=== PATIENT | female | born 1990 | race Caucasian/White ===

== ENCOUNTER 2020-08-14 18:33 | Emergency (ER) | payer BC ==
[2020-08-14 18:51] VITALS: BP 137/102; TEMP 97.7; O2SAT 97
--- NOTE | 2020-08-14 18:59 | ED.PDOC ---
History of Present Illness - General Chief Complaint: Lower Extremity Injury Stated Complaint: right foot pain Time Seen by Provider: 08/14/20 18:40 Source: patient Exam Limitations: no limitations - History of Present Illness Occurred: yesterday Pain - Lower Extremity: moderate: Right Foot - twisted right foot yetserday Method of Injury: twisted Improving Factors: nothing Worsening Factors: nothing Allergies/Adverse Reactions: Allergies NSAIDs Allergy (Verified 08/14/20 18:51) Home Medications: Ambulatory Orders [facility] 08/14/20 Review of Systems - Review of Systems Constitutional: Denies: chills, fever EENTM: Denies: double vision, ear pain Respiratory: Denies: cough, short of breath, stridor Cardiology: Denies: chest pain, edema, palpitations, syncope Gastrointestinal/Abdominal: Denies: see HPI, diarrhea, nausea Musculoskeletal: States: joint pain, joint swelling. Denies: see HPI, back pain, muscle pain, muscle stiffness Skin: Denies: change in color, dryness, lesions Neurological: Denies: anxiety, depressed, emotional problems Endocrine: Denies: see HPI, flushing Hematologic/Lymphatic: Denies: anemia, easy bleeding All other Systems: Reviewed and Negative Past Medical History (General) - Patient Medical History Hx Stroke: No Hx Congestive Heart Failure: No Hx Diabetes: No - Vaccination History Hx Influenza Vaccination: No - Social History Hx Tobacco Use: Yes - Female History Patient is a Female of Child Bearing Age (10 -59 yrs old): Yes Patient : No Family Medical History - Family History Mother Family History: Unknown Living Status: Unknown Physical Exam - Physical Exam General Appearance: Alert, Comfortable Eyes, Ears, Nose, Throat: PERRL/EOMI, normal ENT inspection, TMs normal, pharynx normal Neck: non-tender, full range of motion, supple Cardiovascular/Respiratory: regular rate, rhythm, normal peripheral pulses, no JVD, normal breath sounds, no respiratory distress Gastrointestinal/Abdominal: non-tender, no organomegaly Back: normal inspection, no CVA tenderness, no vertebral tenderness Thigh/Hip: normal inspection, non-tender, no evidence of injury Leg: normal inspection, non-tender, no evidence of injury Foot: bone tenderness - right foot 1st metatarsal , limited ROM - right foot DTR - Lower Extremities: 2+: Achilles, left, Achilles, right, Patellar, left, Patellar, right Neuro/Tendon: normal sensation, normal motor functions, normal tendon functions, responds to pain, no evidence tendon injury Mental Status: alert, oriented x 3 Skin: normal color, warm/dry Progress - Progress Progress: 08/14/20 19:03 Patient presents to the ED with pain in the right foot after twisting her right foot yesterday. X-rays do not show any fractures per my review official radiology report pending.Patient given orthopedic boot and discharged home to follow-up primary care physician in 1 to 2 days. Imaging may be repeated in 14 days if symptoms persist.Prescription for Tylenol with codeine given Departure - Departure Clinical Impression: Right foot sprain, Sprain of right ankle or foot Time of Disposition: 19:04 Disposition: Discharge to Home or Self Care Condition: Fair Departure Forms: ED Discharge - Pt. Copy, Patient Portal Self Enrollment Instructions: DI for Leg Pain, Foot Sprain (DC) Activity: other - as tolerated Referrals: Damian Whaley MD [Primary Care Provider] - 1-2 Weeks MINNA SCHUSTER [Referring] - 1-2 Weeks Home Medications: Ambulatory Orders [facility] 08/14/20 Additional Instructions: Continue ice and elevation of your right foot.Discharge follow-up with primary care physician in 1 to 2 days If symptoms persist in the next couple of weeks x-ray may be repeated.
[2020-08-14] MEDS ORDERED: traMADol HCL 50 MG TAB PO ONE (19:02)
--- NOTE | 2020-08-14 19:12 | RAD ---
EXAM DESCRIPTION: Foot,Right 3 Views 08/14/2020 7:09 PM CDT CLINICAL HISTORY: 30 years, Female, pain COMPARISON: None. FINDINGS: 3 X-ray views of the right foot (frontal lateral and oblique) were performed. No areas of acute bony injuries were demonstrated. No gross articular or soft tissue abnormality is identified. There are no gross intraosseous lesions. No periosteal reaction were seen. No radiopaque foreign body is identified. IMPRESSION: NO EVIDENCE FOR FRACTURE OR DISLOCATION AT THE RIGHT FOOT. Electronically signed by: Corey Chase MD 08/14/2020 7:11 PM CDT
== END 2020-08-14 19:08 | disposition home or self-care (01) ==
LOC: ER 18:33
DX: S93.601A Unspecified sprain of right foot, initial encounter (principal); Z88.6 Allergy status to analgesic agent; Z87.891 Personal history of nicotine dependence; X50.9XXA Other and unspecified overexertion or strenuous movements or postures, initial encounter; Y92.89 Other specified places as the place of occurrence of the external cause; Y92.9 Unspecified place or not applicable